=== PATIENT | male | born 1985 | race Caucasian/White ===

== ENCOUNTER 2017-11-04 14:57 | Emergency (ER) | payer OTHER ==
[~2017-11-04] VITALS: Ht 162.6 cm; Wt 86.2 kg
--- NOTE | 2017-11-04 14:57 | NUR ---
Patient BIBA to bed 1 at this time.
[2017-11-04 15:02] VITALS: BP 145/78
--- NOTE | 2017-11-04 15:57 | NUR ---
PT. REFUSED TO GET LABS DRAWN AND PT. REFUSED TO PROVIDE URINE AT THIS TIME. MD SHAW.
[2017-11-04] MEDS ORDERED: HALOPERIDOL IM 5 MG/ML VIAL IM ONE (16:10)
[2017-11-04] MEDS ORDERED: diphenhydrAMINE 50 MG/ML VIAL IM ONE (16:10)
[2017-11-04] MEDS ORDERED: LORazepam 2 MG/ML VIAL IM ONE (16:10)
--- NOTE | 2017-11-04 16:20 | NUR ---
MOTHER AND SISTER AT BEDSIDE, IN ROOM , PT. REFUSES ANY MEDICATION AT THIS TIME. B/P ELEVATED AND ELEVATED HR. AWAITING ORDERS.
--- NOTE | 2017-11-04 18:10 | NUR ---
PT. TAKEN TO CT VIA [facility].
--- NOTE | 2017-11-04 18:56 | NUR ---
PT. UNABLE TO PROVIDE URINE AT THIS TIME . ER NOTIFIED.
[2017-11-04 19:00] LABS: BASOPHILS # (AUTO) 0.1 K/uL (0.00-0.22); BASOPHILS % (AUTO) 0.6 % (0.0-2.0); EOSINOPHILS % (AUTO) 0.1 % (0.0-4.0); HEMATOCRIT 48.4 % (36-52); HEMOGLOBIN 16.4 g/dL (12.0-18.0); LYMPHOCYTES # (AUTO) 1.5 K/uL (2.0-11.5); LYMPHOCYTES % (AUTO) 17.6 % (20.5-51.1); MEAN CORPUSCULAR HEMOGLOBIN 33 pg (27-31); MEAN CORPUSCULAR HGB CONC 34 g/dL (33-37); MEAN CORPUSCULAR VOLUME 97.6 fL (80-94); MONOCYTES # (AUTO) 0.5 K/uL (0.8-1.0); MONOCYTES % (AUTO) 6.1 % (1.7-9.3); NEUTROPHILS # (AUTO) 6.6 K/uL (1.8-7.7); NEUTROPHILS % (AUTO) 75.6 % (42.2-75.2); PLATELET COUNT (AUTO) 299 K/uL (140-450); RED BLOOD CELL COUNT(AUTO) 4.96 MIL/uL (4.20-6.10); RED CELL DISTRIBUTION WIDTH 11.7 % (11.6-13.7); WHITE BLOOD COUNT (AUTO) 8.7 K/uL (4.8-10.8)
[2017-11-04 19:09] LABS: ANION GAP 12.4 (8-16); CARBON DIOXIDE 26.2 mmol/L (21-32); CHLORIDE 103 mmol/L (98-107); CREATININE 1.1 mg/dL (0.7-1.3); GFR ARICAN-AMERICAN 99 mL/min (>90); GLUCOSE 103 mg/dL (74-106); POTASSIUM 3.6 mmol/L (3.5-5.1); SODIUM SERUM 138 mmol/L (136-145); UREA NITROGEN, BLOOD 13 mg/dL (7-18)
[2017-11-04 19:15] LABS: ALBUMIN 3.7 g/dL (3.4-5.0); ASPARTATE AMINOTRANSFERASE 20 U/L (15-37); TOTAL BILIRUBIN 0.6 mg/dL (0.0-1.0)
--- NOTE | 2017-11-04 19:20 | NUR ---
Pt report given to JENIFFER DURBIN . Transfer of care at this time.
[2017-11-04 19:25] LABS: ACETAMINOPHEN < 0.5 ug/ml (10-30); SALICYLATE < 2.8 mg/dL (2.8-20.0)
--- NOTE | 2017-11-04 19:30 | NUR ---
ASSUMED CARE OF PT.ASLEEP . COND WITHOUT CHANGES. FAMILY AT BEDSIDE. VS WNL.
[2017-11-04 19:48] LABS: CKMB RELATIVE INDEX 0.9 (0.0-2.5); CREATINE KINASE MB 3.8 ng/mL (0-3.6)
--- NOTE | 2017-11-04 19:48 | NUR ---
Dr. Jha evaluating patient at bedside.
--- NOTE | 2017-11-04 22:29 | NUR ---
[place] monique in EDM - 11/04/17 at 2340 by [email or web address] PT REFUSING ALL TREATMENT. AWARE. PT SIGNED OUT AMA. SEE SIGNED FORM.
[2017-11-04 23:08] LABS: APPEARANCE,URINE CLEAR (CLEAR); BILIRUBIN,URINE 1+ (NEGATIVE); BLOOD, URINE NEGATIVE (NEGATIVE); COLOR,URINE YELLOW (YELLOW); LEUKOCYTE ESTERASE ,URINE NEGATIVE (NEGATIVE); NITRITE, URINE NEGATIVE (NEGATIVE); UGLUCOSE NEGATIVE (NEGATIVE)
[2017-11-04 23:10] VITALS: BP 142/86
--- NOTE | 2017-11-04 23:10 | NUR ---
Patient discharged with v/s stable. Written and verbal after care instructions given and explained. Patient verbalized understanding. Ambulatory with steady gait. All questions addressed prior to discharge. Advised to follow up with PMD. Stressed to pt and mother that he must stop using meth.
[2017-11-04 23:16] LABS: BARBITURATE, URINE NEG. ng/ml (NEG <=200); BENZODIAZEPINE, URINE NEG. ng/mL (NEG <=200); CANNABINOID, URINE NEG. ng/mL (NEG <=50); COCAINE, URINE NEG. ng/mL (NEG <=300); OPIATE, URINE NEG. ng/mL (NEG <=2000); PHENCYCLIDINE SCREEN,URINE NEG. ng/mL (NEG <=25)
[2017-11-04 23:23] LABS: RBC,URINE 0-5 (RARE) /HPF (0-5); WBC,URINE 0-5 (RARE) /HPF (0-5)
== END 2017-11-04 23:10 | disposition home or self-care (01) ==
LOC: MED 14:57
DX: F23 Brief psychotic disorder (principal); F15.10 Other stimulant abuse, uncomplicated
CPT/HCPCS: 36415; 70450; 71045; 80053; 80305; 81001; 82550; 82553; 84484; 85025; 93005; 96372; 99285; G0480; G0482; J1200; J1630; J2060; Q0092